=== PATIENT | female | born 1955 | race Caucasian/White ===

== ENCOUNTER 2019-10-11 15:42 | Outpatient (REF) | payer SELFPAY ==
[2019-10-11 16:55] LABS: Chol HDL Ratio 5.76 mg/dL (0.0-4.40); Cholesterol 196 mg/dL (0-200); Glucose 101 mg/dL (65-115); HDL Cholesterol 34 mg/dL (60-100); LDL Cholesterol Calculated 113 mg/dL (50-129); LDL HDL Ratio 3.32 RATIO (0.00-3.22); Triglycerides 243 mg/dL (0-150)
[2019-10-11 18:15] LABS: Estmated Average Glucose 180; Hemoglobin A1C 7.9 % (4.0-6.0)
== END 2019-10-11 15:43 | disposition home or self-care (01) ==
LOC: LAB 15:42
PROVIDERS: Family Provider Nurse Practitioner; PCP Nurse Practitioner; Visit Provider Dermatology
DX: Z13.9 Encounter for screening, unspecified (principal)
CPT/HCPCS: 80061; 82728; 82947; 83036

== ENCOUNTER 2020-07-30 12:50 | Outpatient (CLI) | payer SELFPAY ==
--- NOTE | 2020-08-02 12:47 | ONC FU_ITS ---
Dr. Ravi Patient Follow-Up Note Patient: Lenora Torres Unit #: [id number]: 1955 Dicatated By: Harish Ravi M.D.Date of Visit:Jul 30, 2020 Onc Med Follow-up/Prog Note Chief Complaint: Hereditary hemochromatosis. History of Present Illness: This is a 65 year-old woman with hereditary hemochromatosis. Her HFE gene analysis showed homozygosity for the C282Y mutation. She had presented in September 2012 with elevated serum ferritin at 702 ng/mL. Her transferrin saturation was borderline high at 49.9%. She was first seen here by Dr. Vega on 11/01/2012. Her HFE gene analysis showed homozygous C282Y mutation. She was started on scheduled phlebotomy protocol twice per week. By 01/29/2013 she had 3000 ml of blood drawn, and she achieved a functional iron deficiency with ferritin decreased to 30 ng/mL. She had no further phlebotomies since April 2014. She then continued regular follow-up at [facility]. As of October 2014 her ferritin level had remained low at 32.4 ng/mL. By May 2017 it had increased to 122 ng/mL, and as of 03/19/2019, it had further increased to 158 ng/mL. I had seen her for a follow-up visit on 04/19/2019. Her serum iron studies show transferrin saturation elevated at 52.4% and her ferritin was elevated at 171 ng/mL. With those findings, she restarted phlebotomies every 2 weeks. She did have some delays due to her hemoglobin being borderline low, but she otherwise tolerated it well. As of her follow-up visit on 07/25/2019 her transferrin saturation was normal at 34% and her ferritin was in target range of 49.0 ng/mL, and I did have her stop phlebotomies. Her other medical illnesses include hypertension, dyslipidemia, type II diabetes, and nephrolithiasis. She is known to have nonalcoholic steatohepatitis, and she has a history of colonic polyps. She also has anxiety/depression. In July 2012 she had presented with a large symptomatic right renal pelvic stone, requiring several courses of lithotripsy and ureteral stent placement. Her only other surgery was a hysterectomy/bilateral salpingo-oophorectomy and appendectomy in 1983. Her most recent colonoscopy was in 2015. She is a nonsmoker, and she does not drink alcohol. She is seen now for a follow-up visit. She has been feeling good generally. She has not had any further phlebotomy since her visit last year. Her energy has been good and she has normal activity. ECOG score is 0. Appetite also is good. She has not had fever or night sweats. She does have some hot flashes. She has no shortness of breath, cough, or chest pain. She does have nausea at times and lately she has been having more heartburn. She manages it adequately with Tums. She says her bowels are never normal, but they are okay. She has no complaints. She has some joint pain, mainly in her hands. She has some slight tension headaches. She does report having some numbness in her fingers. She has no other focal neurologic symptoms. Medications: Atenolol 100 mg - Take 1 Tablet Oral daily, B-12 1 Tablet (of 500 mcg) Oral daily, Biotin 1 Tablet (of 500 mcg) Oral daily, Fenofibrate 1 Tablet (of 67 mg) Oral daily, Lantus SoloStar 30 - 35 Units (of 100 Units/mL) Subcutaneous at bedtime, Levemir 35 Units (of 100 Units/mL) Subcutaneous at bedtime, Losartan Potassium 1 Tablet (of 50 mg) Oral daily, MetFORMIN HCl 2 Tablet (of 500 mg) Oral b.i.d., Saw [place] 1 Tablet Oral daily, Venlafaxine HCl 1 (150 mg) Capsule SR 24 HR Oral daily, Victoza 1.8 Units Subcutaneous daily, Vitamin D 1000 Units - Take 1 Tablet Oral daily Allergies: Erythromycin Base, Penicillins, Statins, and Sulfa Drugs. Review of Systems: Constitutional - She has good energy and activity tolerance. Appetite is good and weight is stable. No fever or night sweats. She does have some hot flashes. ECOG score is 0, ENMT - No sinus congestion/drainage. She has had mouth sores. No sore throat or difficulty swallowing, Hematologic/Lymphatic - She does have some bruising, Respiratory - No shortness of breath. No cough. No pleuritic pain or hemoptysis, Cardiovascular - No angina pain. No palpitations, Gastrointestinal - She has nausea at times. She has been having more heartburn. She manages it with Tums. Her bowels are never normal, but they are OK. No blood in the stool or black stools, Genitourinary (F) - No dysuria or hematuria. No urinary frequency. No urgency or incontinence, Musculoskeletal - She has some joint pain in her hands, Integumentary - No skin rash, Neurologic - She has slight headaches. No dizziness. She has numbness in her fngers. No other focal neurologic symptoms, Psychiatric - Her anxiety/depression is adequately managed. No insomnia. Vital Signs: Performed on Jul 30, 2020 13:03 Height - 62.00 in Weight - 163.0 lbs (HIGH) BSA - 1.75 sq.m BMI - 29.81 Temperature - 98.7 F Pulse - 71 /min Respiration - 18 /min BP - 170/74 mm(hg) (HIGH) O2 Sat - 98 % Pain - 0 Physical Examination: Constitutional - She looks good generally, Eyes - Sclerae nonicteric. Conjunctivae clear, ENMT - No lesions noted in the oral cavity, Hematologic/Lymphatic - No cervical, clavicular, or axillary adenopathy, Respiratory - Lungs are clear with good air movement bilaterally, Cardiovascular - Heart rhythm is regular. There is no murmur, gallop, or rub noted, Abdomen - Soft. Liver and spleen are not enlarged. There is no abdominal mass or ascites noted and there is no inguinal adenopathy, Extremities - No edema, Neurologic - No focal neurologic deficits noted. Impression: 1. Patient with hereditary hemochromatosis, homozygous for C282Y mutation. 2. The hemochromatosis was initially diagnosed in 2012 and treated with phlebotomies, stopped as of April 2014 with her ferritin level in iron deficiency range. Her other medical illnesses include: 3. Hypertension. 4. Type II diabetes. 5. Nonalcoholic steatohepatitis. 6. She has a history of nephrolithiasis. 7. History of colonic polyps. 8. Anxiety/depression. In April 2019 she had restarted phlebotomies every 2 weeks after her transferrin saturation and ferritin levels were both found to be elevated. As of her follow-up visit in July 2019 her transferrin saturation was normal and her ferritin level was in target range at 49.0 ng/mL, and I did have her stop phlebotomies. Her clinical status has since then remained stable. Her current laboratory results are pending. Plan: She will restart phlebotomies as indicated based on the transferrin saturation and ferritin level. Her interim laboratory monitoring also will be scheduled as indicated. I will just plan a follow-up visit again in 1 year. Signed By: Harish Ravi M.D. <<Signature on File>>
== END 2020-07-30 12:51 | disposition home or self-care (01) ==
LOC: ONCMED 12:53
PROVIDERS: PCP Nurse Practitioner; Visit Provider Internal Medicine Medical Oncology
DX: E83.110 Hereditary hemochromatosis (principal); I10 Essential (primary) hypertension; E11.9 Type 2 diabetes mellitus without complications; K75.81 Nonalcoholic steatohepatitis (NASH); N20.0 Calculus of kidney; F41.9 Anxiety disorder, unspecified; F32.9 Major depressive disorder, single episode, unspecified; Z86.010 Personal history of colon polyps; Z79.899 Other long term (current) drug therapy
CPT/HCPCS: 99214

== ENCOUNTER 2020-08-05 11:54 | Outpatient (CLI) | payer SELFPAY | END 2020-08-05 11:55 | disposition home or self-care (01) | LOC: ONCMED 11:56 | PROVIDERS: PCP Nurse Practitioner; Visit Provider Internal Medicine Medical Oncology | DX: E83.110 Hereditary hemochromatosis (principal) | CPT/HCPCS: 99195 ==

== ENCOUNTER → 2020-10-08 08:39 | Outpatient (BNVA) | payer SELFPAY | PROVIDERS: PCP Nurse Practitioner; Visit Provider Nurse Practitioner | DX: Z13.6 Encounter for screening for cardiovascular disorders (principal) | CPT/HCPCS: 80061; 82947; 83036 ==

== ENCOUNTER → 2021-02-03 08:41 | Outpatient (BNVA) | payer SELFPAY | PROVIDERS: PCP Nurse Practitioner; Visit Provider Nurse Practitioner | DX: Z01.89 Encounter for other specified special examinations (principal) ==

== ENCOUNTER 2021-02-05 14:19 | Outpatient (CLI) | payer SELFPAY ==
[2021-02-05 16:07] LABS: Ferritin 101 ng/mL (15-150); Iron 110 ug/dL (37-145); Percent Saturation 42.3 % (20-50); Total Iron Binding Capacity 260 mcg/dl; Unsaturated Iron Binding 150 ug/dL (112-347)
== END 2021-02-05 14:20 | disposition home or self-care (01) ==
LOC: ONCMED 14:23
PROVIDERS: PCP Nurse Practitioner; Visit Provider Internal Medicine Medical Oncology
DX: D50.9 Iron deficiency anemia, unspecified (principal); Z79.899 Other long term (current) drug therapy
CPT/HCPCS: 82728; 83540; 83550; 99195

== ENCOUNTER → 2021-05-05 08:20 | Outpatient (BNVA) | payer SELFPAY | PROVIDERS: PCP Nurse Practitioner; Visit Provider Dermatology | DX: Z01.89 Encounter for other specified special examinations (principal) ==

== ENCOUNTER → 2021-07-27 09:06 | Outpatient (BNVA) | payer SELFPAY | PROVIDERS: PCP Nurse Practitioner; Visit Provider Internal Medicine Medical Oncology | DX: E83.110 Hereditary hemochromatosis (principal) | CPT/HCPCS: 82728; 83550 ==

== ENCOUNTER → 2021-07-28 08:45 | Outpatient (BNVA) | payer SELFPAY | PROVIDERS: PCP Nurse Practitioner; Visit Provider Dermatology | DX: Z01.89 Encounter for other specified special examinations (principal) ==

== ENCOUNTER 2021-07-30 12:50 | Outpatient (CLI) | payer SELFPAY ==
--- NOTE | 2021-08-02 13:57 | ONC FU_ITS ---
Dr. Ravi Patient Follow-Up Note Patient: Lenora Torres Unit #: [id number]: 1955 Dicatated By: Harish Ravi M.D.Date of Visit:Jul 30, 2021 Onc Med Follow-up/Prog Note Chief Complaint: Hereditary hemochromatosis. History of Present Illness: This is a 66 year-old woman with hereditary hemochromatosis. Her HFE gene analysis showed homozygosity for the C282Y mutation. She had presented in September 2012 with elevated serum ferritin at 702 ng/mL. Her transferrin saturation was borderline high at 49.9%. She was first seen here by Dr. Vega on 11/01/2012. Her HFE gene analysis showed homozygous C282Y mutation. She was started on scheduled phlebotomy protocol twice per week. By 01/29/2013 she had 3000 ml of blood drawn, and she achieved a functional iron deficiency with ferritin decreased to 30 ng/mL. She had no further phlebotomies since April 2014. She then continued regular follow-up at [facility]. As of October 2014 her ferritin level had remained low at 32.4 ng/mL. By May 2017 it had increased to 122 ng/mL, and as of 03/19/2019, it had further increased to 158 ng/mL. I had seen her for a follow-up visit on 04/19/2019. Her serum iron studies show transferrin saturation elevated at 52.4% and her ferritin was elevated at 171 ng/mL. With those findings, she restarted phlebotomies every 2 weeks. She did have some delays due to her hemoglobin being borderline low, but she otherwise tolerated it well. As of her follow-up visit on 07/25/2019 her transferrin saturation was normal at 34% and her ferritin was in target range of 49.0 ng/mL, and I did have her stop phlebotomies. Her other medical illnesses include hypertension, dyslipidemia, type II diabetes, and nephrolithiasis. She is known to have nonalcoholic steatohepatitis, and she has a history of colonic polyps. She also has anxiety/depression. In July 2012 she had presented with a large symptomatic right renal pelvic stone, requiring several courses of lithotripsy and ureteral stent placement. Her only other surgery was a hysterectomy/bilateral salpingo-oophorectomy and appendectomy in 1983. Her most recent colonoscopy was in 2015. She is a nonsmoker, and she does not drink alcohol. She is seen now for a follow-up visit. She says she is not feeling too bad. She says her blood pressure has been high lately. She does complain that her energy is not very good and that she wants to sleep all the time. She is doing light work. Her ECOG score is 1. She says her appetite takes spells. Her weight is down a couple of pounds. She has not had fever. She sometimes has a lot of sweating at night. Last week she had blisters inside her mouth and she has had sore throat for 2-1/2 weeks. She has had sinus drainage and cough. She has had shortness of breath and a little bit of wheezing. She does not complain of chest pain. She has been having a little nausea and she also has acid reflux. Bowel function has been adequate, though not normal. She has no complaints. She has joint pain, mainly in her hands. Recently she has been having headaches. She does not complain of dizziness, and she has no focal neurologic symptoms. Medications: Atenolol 100 mg - Take 1 Tablet Oral daily, B-12 1 Tablet (of 500 mcg) Oral daily, Biotin 1 Tablet (of 500 mcg) Oral daily, Fenofibrate 1 Tablet (of 67 mg) Oral daily, Lantus SoloStar 30 - 35 Units (of 100 Units/mL) Subcutaneous at bedtime, Levemir 35 Units (of 100 Units/mL) Subcutaneous at bedtime, Losartan Potassium 1 Tablet (of 50 mg) Oral daily, MetFORMIN HCl 2 Tablet (of 500 mg) Oral b.i.d., Saw [place] 1 Tablet Oral daily, Venlafaxine HCl 1 (150 mg) Capsule SR 24 HR Oral daily, Victoza 1.8 Units Subcutaneous daily, Vitamin D 1000 Units - Take 1 Tablet Oral daily Allergies: Erythromycin Base, Penicillins, Statins, and Sulfa Drugs. Vital Signs: Performed on Jul 30, 2021 13:04 Height - 62.00 in Weight - 160.0 lbs (LOW) BSA - 1.74 sq.m BMI - 29.26 Temperature - 97.5 F (LOW) Pulse - 77 /min Respiration - 16 /min BP - 175/82 mm(hg) (HIGH) O2 Sat - 97 % Pain - 0 Fatigue - 6 Physical Examination: Constitutional - She looks good generally, Eyes - Sclerae nonicteric. Conjunctivae clear, ENMT - No lesions noted in the oral cavity, Hematologic/Lymphatic - No cervical, clavicular, or axillary adenopathy, Respiratory - Lungs are clear with good air movement bilaterally, Cardiovascular - Heart rhythm is regular. There is no murmur, gallop, or rub noted, Abdomen - Soft. Liver and spleen are not enlarged. There is no abdominal mass or ascites noted and there is no inguinal adenopathy, Extremities - No edema, Neurologic - No focal neurologic deficits noted. Lab/Imaging: CBC shows hemoglobin 12.8 g, white blood cell count 3900, and platelet count 259,000. Comprehensive metabolic profile shows normal renal function with BUN 20 and creatinine 0.9 mg/dL. The SGOT and SGPT are both mildly elevated, but similar to prior studies. Bilirubin and alkaline phosphatase are normal. The serum iron studies show transferrin saturation 31.3% and the ferritin is stable at 100 ng/mL. Hemoglobin A1c is up slightly at 8%. Problem List: 1. Hereditary hemochromatosis, initially diagnosed in 2012. 2. Hypertension. 3. Type II diabetes. 4. Nonalcoholic steatohepatitis. 5. She has a history of nephrolithiasis. 6. History of colonic polyps. 7. Anxiety/depression. Problems Addressed with this Encounter and Plan: 1. Patient with hereditary hemochromatosis, homozygous for C282Y mutation. The hemochromatosis was initially diagnosed in 2012 and treated with phlebotomies, stopped as of April 2014 with her ferritin level in iron deficiency range. In April 2019 she had restarted phlebotomies every 2 weeks after her transferrin saturation and ferritin levels were both found to be elevated. As of her follow-up visit in July 2019 her transferrin saturation was normal and her ferritin level was in target range at 49.0 ng/mL, and I did have her stop phlebotomies. Her serum iron studies now show transferrin saturation in normal range at 31%. The ferritin level is at the upper end of target range, but stable since January. As such, she will be phlebotomized today and she will be scheduled to return for follow-up in 6 months. 2. She has symptoms of sinusitis and upper respiratory infection. She will be given antibiotic coverage with azithromycin. Signed By: Harish Ravi M.D. <<Signature on File>>
== END 2021-07-30 12:51 | disposition home or self-care (01) ==
LOC: ONCMED 12:53
PROVIDERS: PCP Nurse Practitioner; Visit Provider Internal Medicine Medical Oncology
DX: E83.110 Hereditary hemochromatosis (principal); I10 Essential (primary) hypertension; E11.9 Type 2 diabetes mellitus without complications; E78.5 Hyperlipidemia, unspecified; F41.9 Anxiety disorder, unspecified; F32.A Depression, unspecified; Z79.899 Other long term (current) drug therapy
CPT/HCPCS: 99195; 99214

== ENCOUNTER → 2021-10-27 08:29 | Outpatient (BNVA) | payer SELFPAY | PROVIDERS: PCP Nurse Practitioner; Visit Provider Dermatology | DX: Z01.89 Encounter for other specified special examinations (principal) ==

== ENCOUNTER → 2022-01-26 08:36 | Outpatient (BNVA) | payer SELFPAY | PROVIDERS: PCP Nurse Practitioner; Visit Provider Dermatology | DX: Z01.89 Encounter for other specified special examinations (principal) ==

== ENCOUNTER 2022-02-09 13:49 | Oncology outpatient (recurring) (ONCR) | payer SELFPAY ==
[2022-02-09 14:18] LABS: Basophils % 0.7 %; Eosinophils # 0.2 10^3/uL (0.0-0.8); Eosinophils % 3.7 %; Hematocrit 35.8 % (37.0-47.0); Hemoglobin 12.4 g/dL (11.5-15.3); Lymphocytes # 1.6 10^3/uL (0.8-4.8); Lymphocytes % 37.3 %; Mean Corpuscular HGB Conc 34.6 g/dL (30.0-36.0); Mean Corpuscular Hemoglobin 31.4 pg (28.0-34.0); Mean Corpuscular Volume 90.6 fl (81-99); Mean Platelet Volume 11.6 fL (7.4-10.4); Monocytes # 0.3 10^3/uL (0.2-0.9); Monocytes % 7.6 %; Neutrophils # 2.18 10^3/uL (1.8-7.7); Neutrophils % 50.5 %; Nucleated Red Blood Cells % 0 %; Platelet Count 270 10^3/cmm (130-400); Red Blood Count 3.95 10^6/uL (4.1-5.3); Red Cell Distribution Width 12.2 % (12.1-15.1); White Blood Count 4.3 10^3/uL (4.0-10.0)
[2022-02-09 14:39] LABS: Ferritin 100 ng/mL (15-150); Iron 106 ug/dL (37-145); Percent Saturation 42.9 % (20-50); Total Iron Binding Capacity 247 mcg/dl; Unsaturated Iron Binding 141 ug/dL (112-347)
[2022-02-09] MEDS: sodium chloride 0.9% 500 ML 999 ML IV (16:13)
[2022-02-09 16:33] VITALS: BP 139/67; PULSE 64; RESP 18; TEMP 36.4; O2SAT 98
== END 2022-02-11 23:59 | disposition home or self-care (01) ==
PROVIDERS: PCP Nurse Practitioner; Visit Provider Internal Medicine Medical Oncology
DX: E83.110 Hereditary hemochromatosis (principal)
CPT/HCPCS: 82728; 83540; 83550; 85025; 96360; 99195; 99214; J7040

== ENCOUNTER → 2022-04-27 08:15 | Outpatient (BNVA) | payer SELFPAY | PROVIDERS: PCP Nurse Practitioner; Visit Provider Dermatology | DX: Z01.89 Encounter for other specified special examinations (principal); E11.65 Type 2 diabetes mellitus with hyperglycemia; E78.5 Hyperlipidemia, unspecified; E83.110 Hereditary hemochromatosis; I10 Essential (primary) hypertension; F41.1 Generalized anxiety disorder ==

== ENCOUNTER → 2022-05-04 16:10 | Outpatient (BNVA) | payer MEDICARE, SELFPAY | PROVIDERS: PCP Nurse Practitioner; Visit Provider Nurse Practitioner | DX: I10 Essential (primary) hypertension (principal); E11.65 Type 2 diabetes mellitus with hyperglycemia; Z79.4 Long term (current) use of insulin; E78.2 Mixed hyperlipidemia; F41.1 Generalized anxiety disorder | CPT/HCPCS: 81000 ==

== ENCOUNTER 2022-05-13 14:18 | Oncology outpatient (recurring) (ONCR) | payer MEDICARE, SELFPAY ==
[2022-05-13 14:53] VITALS: BP 133/63; PULSE 68; RESP 16; TEMP 36.3; O2SAT 98
[2022-05-13 14:59] LABS: Basophils % 0.7 %; Eosinophils # 0.2 10^3/uL (0.0-0.8); Eosinophils % 3.3 %; Hematocrit 38.4 % (37.0-47.0); Hemoglobin 12.9 g/dL (11.5-15.3); Lymphocytes # 1.6 10^3/uL (0.8-4.8); Lymphocytes % 35.3 %; Mean Corpuscular HGB Conc 33.6 g/dL (30.0-36.0); Mean Corpuscular Volume 92.3 fl (81-99); Mean Platelet Volume 11.5 fL (7.4-10.4); Monocytes # 0.4 10^3/uL (0.2-0.9); Monocytes % 8.3 %; Neutrophils # 2.34 10^3/uL (1.8-7.7); Neutrophils % 52.2 %; Nucleated Red Blood Cells % 0 %; Platelet Count 259 10^3/cmm (130-400); Red Blood Count 4.16 10^6/uL (4.1-5.3); Red Cell Distribution Width 12.3 % (12.1-15.1); White Blood Count 4.5 10^3/uL (4.0-10.0)
[2022-05-13 15:17] LABS: Ferritin 56 ng/mL (15-150); Iron 92 ug/dL (37-145); Percent Saturation 33.6 % (20-50); Total Iron Binding Capacity 273 mcg/dl; Unsaturated Iron Binding 181 ug/dL (112-347)
[2022-05-13] MEDS: sodium chloride 0.9% 250 ML 500 ML IV (16:05)
== END 2022-05-14 23:59 | disposition home or self-care (01) ==
PROVIDERS: PCP Nurse Practitioner; Visit Provider Internal Medicine Medical Oncology
DX: E83.110 Hereditary hemochromatosis (principal)
CPT/HCPCS: 36415; 82728; 83540; 83550; 85025; 96365; 99195; J7050

== ENCOUNTER → 2022-07-15 10:09 | Outpatient (BNVA) | payer MEDICARE, SELFPAY | PROVIDERS: PCP Nurse Practitioner; Visit Provider Nurse Practitioner Family | DX: R05.9 Cough, unspecified (principal); J06.9 Acute upper respiratory infection, unspecified | CPT/HCPCS: 87400 ==

== ENCOUNTER → 2022-07-27 08:31 | Outpatient (BNVA) | payer SELFPAY | PROVIDERS: PCP Nurse Practitioner; Referring Provider Dermatology; Visit Provider Dermatology | DX: Z01.89 Encounter for other specified special examinations (principal) ==

== ENCOUNTER 2022-08-17 12:56 | Oncology outpatient (recurring) (ONCR) | payer MEDICARE, SELFPAY ==
[2022-08-17 13:54] LABS: Basophils % 0.5 %; Eosinophils # 0.1 10^3/uL (0.0-0.8); Eosinophils % 3.5 %; Hematocrit 36.8 % (37.0-47.0); Hemoglobin 11.8 g/dL (11.5-15.3); Lymphocytes # 1.5 10^3/uL (0.8-4.8); Lymphocytes % 37.2 %; Mean Corpuscular HGB Conc 32.1 g/dL (30.0-36.0); Mean Corpuscular Hemoglobin 29.3 pg (28.0-34.0); Mean Corpuscular Volume 91.3 fl (81-99); Mean Platelet Volume 11.2 fL (7.4-10.4); Monocytes # 0.3 10^3/uL (0.2-0.9); Monocytes % 6.8 %; Neutrophils # 2.04 10^3/uL (1.8-7.7); Neutrophils % 51.7 %; Nucleated Red Blood Cells % 0 %; Platelet Count 276 10^3/cmm (130-400); Red Blood Count 4.03 10^6/uL (4.1-5.3); Red Cell Distribution Width 13.5 % (12.1-15.1)
[2022-08-17 14:19] LABS: Alanine Aminotransferase 33 U/L (0-33); Albumin Level 4.4 g/dL (3.5-5.2); Alkaline Phosphatase 58 U/L (35-105); Anion Gap 14.1 (5-19); Aspartate Amino Transferase 37 U/L (0-32); Blood Urea Nitrogen 22 mg/dL (8-23); Calcium 10.1 mg/dL (8.5-10.5); Carbon Dioxide 26 mmol/L (22-29); Chloride 103 mmol/L (98-107); Ferritin 33 ng/mL (15-150); Globulin 2.9 g/dL (1.3-4.6); Glomerular Filtration Rate 55.6 mL/min (90-130); Glucose 136 mg/dL (65-115); Iron 64 ug/dL (37-145); Osmolality Calculated 293 mOsm/kg (285-295); Percent Saturation 23.1 % (20-50); Potassium 4.1 mmol/L (3.5-5.1); Sodium 139 mmol/L (136-145); Total Bilirubin 0.2 mg/dL (0.15-1.2); Total Iron Binding Capacity 277 mcg/dl; Total Protein 7.3 g/dL (6.6-8.7); Unsaturated Iron Binding 213 ug/dL (112-347)
[2022-08-17 15:22] VITALS: BP 104/74; PULSE 78; RESP 18; TEMP 36.1; O2SAT 98
[2022-08-17 16:10] VITALS: BP 107/68; PULSE 84; RESP 18; TEMP 36.6; O2SAT 97
== END 2022-09-14 23:59 | disposition home or self-care (01) ==
PROVIDERS: PCP Nurse Practitioner; Visit Provider Internal Medicine Medical Oncology
DX: E83.110 Hereditary hemochromatosis (principal); Z79.899 Other long term (current) drug therapy
CPT/HCPCS: 36415; 80053; 82728; 83540; 83550; 85025; 96365; 99195

== ENCOUNTER → 2022-08-18 08:46 | Outpatient (BNVA) | payer MEDICARE, SELFPAY | PROVIDERS: PCP Nurse Practitioner; Visit Provider Nurse Practitioner | DX: I10 Essential (primary) hypertension (principal); E11.65 Type 2 diabetes mellitus with hyperglycemia; Z79.4 Long term (current) use of insulin; Z86.010 Personal history of colon polyps; E78.2 Mixed hyperlipidemia; F41.1 Generalized anxiety disorder; Z12.39 Encounter for other screening for malignant neoplasm of breast | CPT/HCPCS: 81000 ==

== ENCOUNTER 2022-09-02 13:13 | Outpatient (CLI) | payer MEDICARE, SELFPAY ==
--- NOTE | 2022-09-02 13:23 | MM_ITS ---
WS: [id number] BILATERAL 3D TOMOSYNTHESIS DIGITAL SCREENING MAMMOGRAPHY WITH CAD CLINICAL INFORMATION: Z12.39 - Encounter for other screening for malignant neop... HISTORY: Screening mammogram. No current complaints. COMPARISON: 2018 TECHNIQUE: Bilateral CC and MLO views. FINDINGS: Scattered fibroglandular densities bilaterally. No suspicious focal mass, asymmetry, calcifications, or architectural distortion. No evidence of malignancy. Punctate and lucent centered calcifications. Vascular calcification. MM/[place] [id number] IMPRESSION: BI-RADS: 2-Benign FOLLOW UP: 1 Year Follow-up Recommend return to annual screening mammography.
== END 2022-09-02 13:14 | disposition home or self-care (01) ==
LOC: RAD 13:15
PROVIDERS: PCP Nurse Practitioner; Visit Provider Nurse Practitioner
DX: Z12.31 Encounter for screening mammogram for malignant neoplasm of breast (principal)
CPT/HCPCS: 77063; 77067

== ENCOUNTER 2022-10-21 05:54 | Day surgery (SDC) | payer MEDICARE, SELFPAY ==
[2022-10-19 09:39] VITALS: BMI 26.9
[2022-10-21 06:16] VITALS: BP 129/72; PULSE 67; RESP 18; TEMP 36.2; O2SAT 99
[2022-10-21] MEDS: sodium chloride 0.9% 1,000 ML 30 ML IV (06:22)
[2022-10-21 06:31] LABS: Glucose Point of Care 125 mg/dL (70-110)
--- NOTE | 2022-10-21 06:48 | P.ANESASSM_ITS ---
Pre-Anesthetic Assessment Height/Weight: Height 1.57 m Weight 66.678 kg Temp Pulse Resp BP Pulse Ox 97.1 F L 67 18 129/72 99 10/21/22 06:16 10/21/22 06:16 10/21/22 06:16 10/21/22 06:16 10/21/22 06:16 Preop Diagnosis: history of colon polyps Operation Date: 10/21/22 07:30 Proposed Procedures p 08128 Colonoscopy z86.010(Not Applicable) - Jericho Hammond DO Familial anesthetic complications: none Was Beta Cheryl taken within 24 hours: Yes Was Clonidine taken within 24 hours: N/A Last intake: Intake Last Liquid Date 10/20/22 Last Solid Date 10/19/22 Social No alcohol and No tobacco Exam alert, oriented x 3, clear to auscultation bilaterally and regular rate & rhythm Airway Submandibular: within normal limits Cervical ROM: within normal limits Mallampati: Class I Dentition: full Pulmonary None reported CV/HEM Hypertension None reported Hepatic None reported GI Gastroesophageal Reflux Disease (controlled) Metabolic Diabetes Mellitus and Hyperlipidemia [facility] None reported Neuropsych Anxiety and Depression Anesthetic Plan ASA status: 3 Anesthesia: MAC Risk of > 500 ml blood loss (7ml/kg in children): No Medications/Allergies Home Medications Medication Instructions Recorded Confirmed Last Taken Type cholecalciferol (vitamin D3) 250 10,000 unit PO DAILY 09/18/19 10/19/22 10/20/22 History mcg (10,000 unit) capsule vitamin B complex (B 1 tab PO DAILY 09/18/19 10/19/22 10/20/22 History Complex-Vitamin B12 tablet) pen needle, diabetic 33 gauge x #100 ea 11/03/21 10/05/22 10/20/22 Rx 5/32 biotin 2,500 mcg tablet and 1 ea PO DAILY 08/17/22 10/19/22 10/20/22 History xfmpnjnt-[id number]-[id number] topical lacquer kit atenolol 100 mg tablet 100 mg PO DAILY #90 tabs 08/18/22 10/19/22 10/21/22 Rx dapagliflozin 5 mg tablet (Farxiga) 5 mg PO QAM #30 tabs 08/18/22 10/19/22 10/20/22 Rx fenofibrate micronized 67 mg 67 mg PO .2 times day #180 caps 08/18/22 10/19/22 10/20/22 Rx capsule liraglutide 0.6 mg/0.1 mL (18 mg/3 1.8 mg (0.3 mL) SUBCUT Q24H #9 mL 08/18/22 10/19/22 10/20/22 Rx mL) subcutaneous pen injector (Victoza 3-Checo) metformin 500 mg tablet 1,000 mg PO BID #360 tabs 08/18/22 10/19/22 10/20/22 Rx valsartan 320 mg tablet (Diovan) 320 mg PO DAILY #90 tabs 08/18/22 10/19/22 10/20/22 Rx venlafaxine 150 mg 150 mg PO QAM #180 caps 08/18/22 10/19/22 10/20/22 Rx capsule,extended release 24 hr aspirin 81 mg tablet,delayed 81 mg PO DAILY 10/05/22 10/19/22 10/11/22 History release loratadine 10 mg tablet 10 mg PO DAILY 10/05/22 10/19/22 10/20/22 History insulin detemir U-100 100 unit/mL 35 unit SUBCUT DAILY 10/19/22 10/19/22 10/20/22 History (3 mL) subcutaneous pen (Levemir FlexTouch U-100 Insulin) Allergies Allergy/AdvReac Type Severity Reaction Status Date / Time erythromycin base Allergy Unknown Verified 10/21/22 06:15 Penicillins Allergy Unknown Verified 10/21/22 06:15 Sulfa (Sulfonamide Allergy Unknown Verified 10/21/22 06:15 Antibiotics) Current Medications Generic Name Dose Route Start Last Admin Trade Name Freq PRN Reason Stop Dose Admin Sodium Chloride 1,000 mls @ 30 mls/hr 10/21/22 06:15 10/21/22 06:22 Sodium Chloride 0.9% IV 10/22/22 06:14 30 mls/hr .Q24H WILTON Administration PFSH Anesthesia Medical History Depression Diabetes mellitus with hyperglycemia, with long-term current use of insulin Generalized anxiety disorder GERD (gastroesophageal reflux disease) Hereditary hemochromatosis History of colonic polyps Hypertension, benign Mixed hyperlipidemia Nephrolithiasis Nonalcoholic steatohepatitis Surgical History History of colonoscopy (2015) History of hysterectomy with bilateral oophorectomy (1983) and with appendectomy History of lithotripsy (2011) with ureteral stent placement Family History Sister Cancer Breast Mother Dementia Other Diabetes Hyperlipidemia Hypertension Denies family history of CAD (coronary artery disease) Clotting disorder Psychiatric illness Chronic kidney disease (CKD) Suicide Anesthesia complication Bleeding disorder Lung disease Stroke Social History Smoking and tobacco status: never smoked Second hand smoke exposure: No Smoking risk assessment/counseling performed?: No Alcohol intake: never Desire information about alcohol rehabilitation?: No Counseling given: No Desire information about substance/drug rehabilitation?: No Counseling given: No Adopted: No Caregiver/support person: No Lives independently: Yes Household members: spouse Housing: House Marital status: service: No Current gender identity: Female Data Anesthesia Cardiac Studies: No Data to Display
--- NOTE | 2022-10-21 06:54 | W.PM.OPSUD ---
Surgery/Procedure H&P Update DATE OF PROCEDURE: October 21, 2022 DATE H&P PERFORMED: 10/05/22 H&P UPDATE INFORMATION: I have reviewed H&P completed within last 30 days, I have examined patient prior to procedure and No changes to prior documentation PREOP DIAGNOSIS: history of colon polyps PLANNED PROCEDURE: Operation Date: 10/21/22 07:30 Proposed Procedures p [id number] Colonoscopy z86.010(Not Applicable) - Jericho Hammond DO
[2022-10-21 08:26] VITALS: BP 88/60; PULSE 59; RESP 16; TEMP 36.2; O2SAT 100
[2022-10-21 08:36] VITALS: BP 90/53; PULSE 68; RESP 16; O2SAT 97
--- NOTE | 2022-10-21 14:05 | ANE.PACU2 ---
Inpatient post-anesthesia follow up: Airway intact: Yes Vital signs: Temperature 97.2 F Pulse Rate 68 Respiratory Rate 16 Blood Pressure 90/53 Pulse Oximetry 97 Oxygen Delivery Me thod Room Air Oxygen Flow Rate Fraction of Inspir ed Oxygen Hydration adequate: Yes Nausea and vomiting: No Pain level: 1 Mental status: Baseline
== END 2022-10-21 08:59 | disposition home or self-care (01) ==
PROVIDERS: PCP Nurse Practitioner; Visit Provider Surgery
PROC: 0DJD8ZZ Inspection of Lower Intestinal Tract, Via Natural or Artificial Opening Endoscopic (ICD-10-PCS; CPT 45378; principal; 2022-10-21 07:30)
DX: Z12.11 Encounter for screening for malignant neoplasm of colon (principal); E11.9 Type 2 diabetes mellitus without complications; I10 Essential (primary) hypertension; E78.2 Mixed hyperlipidemia; K21.9 Gastro-esophageal reflux disease without esophagitis; Z79.82 Long term (current) use of aspirin; Z79.4 Long term (current) use of insulin; Z79.84 Long term (current) use of oral hypoglycemic drugs; Z86.010 Personal history of colon polyps; Z88.0 Allergy status to penicillin; Z88.2 Allergy status to sulfonamides
CPT/HCPCS: 36416; 82962; G0121; J2704; J7030

== ENCOUNTER → 2022-10-26 08:26 | Outpatient (BNVA) | payer MEDICARE, SELFPAY | PROVIDERS: PCP Nurse Practitioner; Visit Provider Dermatology | DX: Z01.89 Encounter for other specified special examinations (principal) ==

== ENCOUNTER → 2022-11-05 09:57 | Outpatient (BNVA) | payer MEDICARE, SELFPAY | PROVIDERS: PCP Nurse Practitioner; Visit Provider Nurse Practitioner | DX: I10 Essential (primary) hypertension (principal); E11.65 Type 2 diabetes mellitus with hyperglycemia; Z79.4 Long term (current) use of insulin; E78.2 Mixed hyperlipidemia; F41.1 Generalized anxiety disorder | CPT/HCPCS: 81000 ==

== ENCOUNTER → 2022-11-15 16:00 | Outpatient (BNVA) | payer MEDICARE, SELFPAY | PROVIDERS: PCP Nurse Practitioner; Visit Provider Nurse Practitioner Family | DX: R30.0 Dysuria (principal); Z87.442 Personal history of urinary calculi | CPT/HCPCS: 74018; 80053; 81000; 85025 ==

== ENCOUNTER → 2023-01-25 08:27 | Outpatient (BNVA) | payer SELFPAY | PROVIDERS: PCP Nurse Practitioner; Visit Provider Dermatology | DX: Z01.89 Encounter for other specified special examinations (principal) ==

== ENCOUNTER 2023-02-21 13:01 | Oncology outpatient (recurring) (ONCR) | payer MEDICARE, SELFPAY ==
[2023-02-21 13:12] VITALS: BP 140/70; PULSE 78; RESP 18; TEMP 36.9; O2SAT 96
[2023-02-21 13:27] LABS: Basophils % 0.8 %; Eosinophils # 0.1 10^3/uL (0.0-0.8); Eosinophils % 2.9 %; Hematocrit 37.4 % (37.0-47.0); Hemoglobin 12.2 g/dL (11.5-15.3); Lymphocytes # 1.5 10^3/uL (0.8-4.8); Lymphocytes % 39.2 %; Mean Corpuscular HGB Conc 32.6 g/dL (30.0-36.0); Mean Corpuscular Hemoglobin 29.4 pg (28.0-34.0); Mean Corpuscular Volume 90.1 fl (81-99); Mean Platelet Volume 11.2 fL (7.4-10.4); Monocytes # 0.3 10^3/uL (0.2-0.9); Neutrophils # 1.81 10^3/uL (1.8-7.7); Neutrophils % 47.8 %; Nucleated Red Blood Cells % 0 %; Platelet Count 271 10^3/cmm (130-400); Red Blood Count 4.15 10^6/uL (4.1-5.3); Red Cell Distribution Width 14.1 % (12.1-15.1); White Blood Count 3.8 10^3/uL (4.0-10.0)
[2023-02-21 13:48] LABS: Alanine Aminotransferase 24 U/L (0-33); Albumin Level 4.3 g/dL (3.5-5.2); Alkaline Phosphatase 62 U/L (35-105); Anion Gap 12.9 (5-19); Aspartate Amino Transferase 26 U/L (0-32); Blood Urea Nitrogen 18 mg/dL (8-23); Calcium 9.3 mg/dL (8.5-10.5); Carbon Dioxide 26 mmol/L (22-29); Chloride 97 mmol/L (98-107); Ferritin 28 ng/mL (15-150); Globulin 2.6 g/dL (1.3-4.6); Glucose 135 mg/dL (65-115); Iron 88 ug/dL (37-145); Osmolality Calculated 278 mOsm/kg (285-295); Percent Saturation 35.9 % (20-50); Potassium 3.9 mmol/L (3.5-5.1); Sodium 132 mmol/L (136-145); Total Bilirubin 0.2 mg/dL (0.15-1.2); Total Iron Binding Capacity 245 mcg/dl; Total Protein 6.9 g/dL (6.6-8.7); Unsaturated Iron Binding 157 ug/dL (112-347)
== END 2023-03-14 23:59 | disposition home or self-care (01) ==
PROVIDERS: PCP Nurse Practitioner; Visit Provider Internal Medicine Medical Oncology
DX: E83.110 Hereditary hemochromatosis (principal)
CPT/HCPCS: 80053; 82728; 83540; 83550; 85025; 99213

== ENCOUNTER 2023-03-01 13:16 | Outpatient (CLI) | payer MEDICARE, SELFPAY ==
--- NOTE | 2023-03-01 13:30 | XR_ITS ---
WS: [id number] SCREENING DEXA SCAN [employer] CLINICAL INFORMATION: Z78.0 - Asymptomatic menopausal state COMPARISON: None. FINDINGS: The L1-L4 bone mineral density measures 1.732 g/cm2. This corresponds to a T score score of 4.6 and Z score of 6.2. Left femoral neck bone mineral density measures 1.507 g/cm2. This corresponds to a T score of 4.0 and Z score of 5.2. Right femoral neck bone mineral density measures 1.491 g/cm2. This corresponds to a T score 3.8of and Z score of 5.0. Mean femoral neck bone mineral density measures 1.499 g/cm2. This corresponds to a T score of 3.9 and Z score of 5.1. XR/XR DEXA axial skeleton* [id number] IMPRESSION: Normal bone mineralization. Patient's FRAX calculated 10 year probability for major osteoporotic fracture i s 4.8 % and osteoporotic hip fracture is 0.0%.
== END 2023-03-01 13:17 | disposition home or self-care (01) ==
LOC: RAD 13:17
PROVIDERS: PCP Nurse Practitioner; Visit Provider Nurse Practitioner
DX: Z13.820 Encounter for screening for osteoporosis (principal); Z78.0 Asymptomatic menopausal state
CPT/HCPCS: 77080

== ENCOUNTER → 2023-03-03 12:57 | Outpatient (BNVA) | payer MEDICARE, SELFPAY | PROVIDERS: PCP Nurse Practitioner; Visit Provider Internal Medicine | DX: Z13.6 Encounter for screening for cardiovascular disorders (principal); Z78.0 Asymptomatic menopausal state | CPT/HCPCS: 93005 ==

== ENCOUNTER → 2023-04-26 08:25 | Outpatient (BNVA) | payer MEDICARE, SELFPAY | PROVIDERS: PCP Nurse Practitioner; Visit Provider Dermatology | DX: Z01.89 Encounter for other specified special examinations (principal) ==

== ENCOUNTER 2023-05-23 10:56 | Oncology outpatient (recurring) (ONCR) | payer MEDICARE, SELFPAY ==
[2023-05-23 11:03] VITALS: BP 154/75; PULSE 64; RESP 16; TEMP 36.5; O2SAT 96
[2023-05-23 11:16] LABS: Basophils % 0.9 %; Eosinophils # 0.1 10^3/uL (0.0-0.8); Eosinophils % 2.3 %; Hematocrit 39.1 % (36-47); Lymphocytes # 1.6 10^3/uL (0.8-4.8); Lymphocytes % 36.9 %; Mean Corpuscular HGB Conc 33.5 g/dL (30-55); Mean Corpuscular Hemoglobin 30.8 pg (27-33); Mean Platelet Volume 11.2 fL (7.4-10.4); Monocytes # 0.4 10^3/uL (0.2-0.9); Monocytes % 9.2 %; Neutrophils # 2.15 10^3/uL (1.8-7.7); Neutrophils % 50.5 %; Nucleated Red Blood Cells % 0 %; Platelet Count 272 10^3/cmm (157-399); Red Blood Count 4.25 10^6/uL (3.85-5.65); Red Cell Distribution Width 12.7 % (12.1-15.1); White Blood Count 4.26 10^3/uL (3.29-11.43)
[2023-05-23 11:39] LABS: Alanine Aminotransferase 35 U/L (0-33); Albumin Level 4.4 g/dL (3.5-5.2); Alkaline Phosphatase 74 U/L (35-105); Anion Gap 11.1 (5-19); Aspartate Amino Transferase 31 U/L (0-32); Blood Urea Nitrogen 22 mg/dL (8-23); Calcium 9.4 mg/dL (8.5-10.5); Carbon Dioxide 27 mmol/L (22-29); Chloride 99 mmol/L (98-107); Ferritin 47 ng/mL (15-150); Globulin 2.7 g/dL (1.3-4.6); Glomerular Filtration Rate 55.5 mL/min (90-130); Glucose 145 mg/dL (65-115); Iron 92 ug/dL (37-145); Osmolality Calculated 282 mOsm/kg (285-295); Percent Saturation 35.6 % (20-50); Potassium 4.1 mmol/L (3.5-5.1); Sodium 133 mmol/L (136-145); Total Bilirubin 0.2 mg/dL (0.15-1.2); Total Iron Binding Capacity 258 mcg/dl; Total Protein 7.1 g/dL (6.6-8.7); Unsaturated Iron Binding 166 ug/dL (112-347)
== END 2023-06-14 23:59 | disposition home or self-care (01) ==
PROVIDERS: Nurse Practitioner Family; PCP Nurse Practitioner; Visit Provider Internal Medicine Medical Oncology
DX: E83.110 Hereditary hemochromatosis (principal); E11.65 Type 2 diabetes mellitus with hyperglycemia; Z79.4 Long term (current) use of insulin
CPT/HCPCS: 36415; 80053; 82728; 83540; 83550; 85025; 99214

== ENCOUNTER 2023-07-26 09:09 | Outpatient (CLI) | payer SELFPAY ==
[2023-07-26 10:03] LABS: HF Add Manual Diff No
[2023-07-26 10:09] LABS: Basophils % 0.7 %; Eosinophils # 0.1 10^3/uL (0.0-0.8); Eosinophils % 2.7 %; Hematocrit 39.5 % (36-47); Lymphocytes # 1.5 10^3/uL (0.8-4.8); Lymphocytes % 36.9 %; Mean Corpuscular HGB Conc 33.9 g/dL (30-55); Mean Corpuscular Hemoglobin 31.8 pg (27-33); Mean Corpuscular Volume 93.8 fl (85-98); Mean Platelet Volume 11.3 fL (7.4-10.4); Monocytes # 0.4 10^3/uL (0.2-0.9); Monocytes % 9.2 %; Neutrophils % 50.5 %; Nucleated Red Blood Cells % 0 %; Platelet Count 258 10^3/cmm (157-399); Red Blood Count 4.21 10^6/uL (3.85-5.65); Red Cell Distribution Width 12.6 % (12.1-15.1); White Blood Count 4.15 10^3/uL (3.29-11.43)
[2023-07-26 10:26] LABS: Estmated Average Glucose 143; Hemoglobin A1C 6.6 % (4.0-6.0)
[2023-07-26 10:37] LABS: Alanine Aminotransferase 22 U/L (0-33); Albumin Level 4.4 g/dL (3.5-5.2); Alkaline Phosphatase 63 U/L (35-105); Anion Gap 16.9 (5-19); Aspartate Amino Transferase 28 U/L (0-32); Blood Urea Nitrogen 26 mg/dL (8-23); Calcium 9.7 mg/dL (8.5-10.5); Carbon Dioxide 25 mmol/L (22-29); Chloride 100 mmol/L (98-107); Chol HDL Ratio 6.17 mg/dL (0.0-4.40); Cholesterol 216 mg/dL (0-200); Globulin 2.7 g/dL (1.3-4.6); Glomerular Filtration Rate 83.7 mL/min (90-130); Glucose 110 mg/dL (65-115); HDL Cholesterol 35 mg/dL (60-100); LDL Cholesterol Calculated 113 mg/dL (50-129); LDL HDL Ratio 3.23 RATIO (0.00-3.22); Osmolality Calculated 291 mOsm/kg (285-295); Potassium 3.9 mmol/L (3.5-5.1); Sodium 138 mmol/L (136-145); Total Bilirubin 0.2 mg/dL (0.15-1.2); Total Protein 7.1 g/dL (6.6-8.7); Triglycerides 341 mg/dL (0-150)
== END 2023-07-26 09:10 | disposition home or self-care (01) ==
LOC: LAB 09:11
PROVIDERS: PCP Nurse Practitioner; Visit Provider Dermatology
DX: Z01.89 Encounter for other specified special examinations (principal)
CPT/HCPCS: 36415

== ENCOUNTER → 2023-08-16 16:00 | Outpatient (BNVA) | payer SELFPAY | PROVIDERS: PCP Nurse Practitioner; Visit Provider Nurse Practitioner | DX: E11.65 Type 2 diabetes mellitus with hyperglycemia (principal); Z79.4 Long term (current) use of insulin | CPT/HCPCS: 81000 ==

== ENCOUNTER 2023-08-25 12:54 | Oncology outpatient (recurring) (ONCR) | payer MEDICARE, SELFPAY ==
[2023-08-25 13:25] VITALS: BP 145/60; PULSE 72; RESP 16; TEMP 36.9; O2SAT 96
[2023-08-25 13:30] LABS: Basophils % 0.9 %; Eosinophils # 0.1 10^3/uL (0.0-0.8); Eosinophils % 1.7 %; Hematocrit 36.7 % (36-47); Lymphocytes # 1.3 10^3/uL (0.8-4.8); Lymphocytes % 36.1 %; Mean Corpuscular HGB Conc 33.5 g/dL (30-55); Mean Corpuscular Hemoglobin 31.1 pg (27-33); Mean Corpuscular Volume 92.7 fl (85-98); Monocytes # 0.3 10^3/uL (0.2-0.9); Monocytes % 8.8 %; Neutrophils # 1.85 10^3/uL (1.8-7.7); Neutrophils % 52.5 %; Nucleated Red Blood Cells % 0 %; Platelet Count 263 10^3/cmm (157-399); Red Blood Count 3.96 10^6/uL (3.85-5.65); Red Cell Distribution Width 12.4 % (12.1-15.1); White Blood Count 3.52 10^3/uL (3.29-11.43)
[2023-08-25 13:47] LABS: Alanine Aminotransferase 32 U/L (0-33); Albumin Level 4.2 g/dL (3.5-5.2); Alkaline Phosphatase 52 U/L (35-105); Anion Gap 15.2 (5-19); Aspartate Amino Transferase 35 U/L (0-32); Blood Urea Nitrogen 18 mg/dL (8-23); Calcium 9.6 mg/dL (8.5-10.5); Carbon Dioxide 26 mmol/L (22-29); Chloride 101 mmol/L (98-107); Ferritin 56 ng/mL (15-150); Globulin 2.8 g/dL (1.3-4.6); Glomerular Filtration Rate 71.8 mL/min (90-130); Glucose 144 mg/dL (65-115); Iron 79 ug/dL (37-145); Osmolality Calculated 290 mOsm/kg (285-295); Potassium 4.2 mmol/L (3.5-5.1); Sodium 138 mmol/L (136-145); Total Bilirubin 0.2 mg/dL (0.15-1.2); Total Iron Binding Capacity 232 mcg/dl; Unsaturated Iron Binding 153 ug/dL (112-347)
== END 2023-09-14 23:59 | disposition home or self-care (01) ==
LOC: ONCMED 12:54
PROVIDERS: Nurse Practitioner Family; PCP Nurse Practitioner; Visit Provider Internal Medicine Medical Oncology
DX: E83.110 Hereditary hemochromatosis (principal)
CPT/HCPCS: 36415; 80053; 82728; 83540; 83550; 85025

== ENCOUNTER 2023-09-27 15:21 | Outpatient (CLI) | payer MEDICARE, SELFPAY ==
--- NOTE | 2023-09-27 15:30 | MM_ITS ---
WS: [id number] Bilateral screening 3D tomosynthesis digital mammogram, 09/27/2023 Clinical Data: Z12.31 - Encounter for screening mammogram for malignant ... Comparison: 09/02/2022, 08/11/2018, 08/04/2016, 03/07/2015, 10/03/2013, 02/08/2012, 10/01/2010, 06/16/2009, 06/03/2008, 07/24/2007. Findings: The breast parenchymal pattern shows fibroglandular tissue. There are scattered benign calcifications throughout both breasts. No spiculated masses or clustered calcifications are seen. There are no sec ondary signs of carcinoma. Impression: 1. Negative bilateral mammogram unchanged. 2. Recommend annual screening mammograms. MM/[place] [id number] BIRADS: 1-Negative FOLLOW UP: 1 Year Follow-up The CAD radio program checker was used.
== END 2023-09-27 15:22 | disposition home or self-care (01) ==
LOC: MOBLMAM 15:28
PROVIDERS: PCP Nurse Practitioner; Visit Provider Nurse Practitioner
DX: Z12.31 Encounter for screening mammogram for malignant neoplasm of breast (principal); R92.1 Mammographic calcification found on diagnostic imaging of breast
CPT/HCPCS: 77063; 77067

== ENCOUNTER → 2023-10-20 15:49 | Outpatient (BNVA) | payer MEDICARE, SELFPAY | PROVIDERS: PCP Nurse Practitioner; Visit Provider Nurse Practitioner Family | DX: R50.9 Fever, unspecified (principal) | CPT/HCPCS: 87400; 87426 ==

== ENCOUNTER → 2023-10-31 08:22 | Outpatient (BNVA) | payer MEDICARE, SELFPAY | PROVIDERS: PCP Nurse Practitioner; Visit Provider Nurse Practitioner | DX: E11.9 Type 2 diabetes mellitus without complications (principal) | CPT/HCPCS: 80053; 80061; 82607; 83036; 84443; 85025 ==

== ENCOUNTER → 2023-11-01 10:06 | Outpatient (BNVA) | payer MEDICARE, SELFPAY | PROVIDERS: PCP Nurse Practitioner; Visit Provider Nurse Practitioner | DX: E11.9 Type 2 diabetes mellitus without complications (principal) | CPT/HCPCS: 81000 ==

== ENCOUNTER 2023-11-24 12:56 | Oncology outpatient (recurring) (ONCR) | payer MEDICARE, SELFPAY ==
[2023-11-24 13:31] LABS: Basophils % 0.9 %; Eosinophils # 0.1 10^3/uL (0.0-0.8); Eosinophils % 2.1 %; Hematocrit 38.3 % (36-47); Lymphocytes # 1.2 10^3/uL (0.8-4.8); Lymphocytes % 35.9 %; Mean Corpuscular HGB Conc 33.2 g/dL (30-55); Mean Corpuscular Hemoglobin 31.8 pg (27-33); Mean Platelet Volume 10.9 fL (7.4-10.4); Monocytes # 0.4 10^3/uL (0.2-0.9); Monocytes % 10.3 %; Neutrophils # 1.72 10^3/uL (1.8-7.7); Neutrophils % 50.5 %; Nucleated Red Blood Cells % 0 %; Platelet Count 291 10^3/cmm (157-399); Red Blood Count 3.99 10^6/uL (3.85-5.65)
[2023-11-24 15:34] LABS: Ferritin 78 ng/mL (15-150); Iron 82 ug/dL (37-145); Percent Saturation 35.3 % (20-50); Total Iron Binding Capacity 232 mcg/dl; Unsaturated Iron Binding 150 ug/dL (112-347)
== END 2023-12-13 23:59 | disposition home or self-care (01) ==
PROVIDERS: Nurse Practitioner Family; PCP Nurse Practitioner; Visit Provider Internal Medicine Medical Oncology
DX: E83.110 Hereditary hemochromatosis (principal); Z79.899 Other long term (current) drug therapy
CPT/HCPCS: 36415; 82728; 83540; 83550; 85025; 99214

== ENCOUNTER → 2024-01-26 15:33 | Outpatient (BNVA) | payer MEDICARE, SELFPAY | PROVIDERS: PCP Nurse Practitioner; Visit Provider Nurse Practitioner | DX: E11.65 Type 2 diabetes mellitus with hyperglycemia (principal); Z79.4 Long term (current) use of insulin | CPT/HCPCS: 81000; 82043 ==

== ENCOUNTER 2024-03-01 12:46 | Oncology outpatient (recurring) (ONCR) | payer MEDICARE, SELFPAY ==
[2024-03-01 13:05] VITALS: BP 170/77; PULSE 67; RESP 16; O2SAT 95
[2024-03-01 13:32] LABS: Basophils % 0.7 %; Eosinophils # 0.1 10^3/uL (0.0-0.8); Eosinophils % 2.5 %; Hematocrit 38.9 % (36-47); Lymphocytes # 1.4 10^3/uL (0.8-4.8); Lymphocytes % 33.9 %; Mean Corpuscular HGB Conc 34.2 g/dL (30-55); Mean Corpuscular Hemoglobin 32.2 pg (27-33); Mean Corpuscular Volume 94.2 fl (85-98); Mean Platelet Volume 11.1 fL (7.4-10.4); Monocytes # 0.4 10^3/uL (0.2-0.9); Monocytes % 9.6 %; Neutrophils # 2.17 10^3/uL (1.8-7.7); Neutrophils % 53.3 %; Nucleated Red Blood Cells % 0 %; Platelet Count 243 10^3/cmm (157-399); Red Blood Count 4.13 10^6/uL (3.85-5.65); Red Cell Distribution Width 12.7 % (12.1-15.1); White Blood Count 4.07 10^3/uL (3.29-11.43)
[2024-03-01 13:47] LABS: Ferritin 63 ng/mL (15-150); Iron 157 ug/dL (37-145); Percent Saturation 63.8 % (20-50); Total Iron Binding Capacity 246 mcg/dl; Unsaturated Iron Binding 89 ug/dL (112-347)
== END 2024-03-14 23:59 | disposition home or self-care (01) ==
LOC: ONCMED 12:47
PROVIDERS: Nurse Practitioner Family; PCP Nurse Practitioner; Visit Provider Internal Medicine Medical Oncology
DX: Z79.899 Other long term (current) drug therapy (principal); E83.110 Hereditary hemochromatosis
CPT/HCPCS: 36415; 82728; 83540; 83550; 85025

== ENCOUNTER → 2024-04-30 15:37 | Outpatient (BNVA) | payer MEDICARE, SELFPAY | PROVIDERS: PCP Nurse Practitioner; Visit Provider Nurse Practitioner | DX: E11.65 Type 2 diabetes mellitus with hyperglycemia (principal) | CPT/HCPCS: 81000 ==

== ENCOUNTER 2024-05-31 12:56 | Oncology outpatient (recurring) (ONCR) | payer MEDICARE, SELFPAY ==
[2024-05-31 13:13] LABS: Basophils % 0.8 %; Eosinophils # 0.1 10^3/uL (0.0-0.8); Eosinophils % 2.5 %; Hematocrit 38.9 % (36-47); Lymphocytes # 1.2 10^3/uL (0.8-4.8); Lymphocytes % 32.7 %; Mean Corpuscular HGB Conc 33.9 g/dL (30-55); Mean Corpuscular Hemoglobin 31.7 pg (27-33); Mean Corpuscular Volume 93.3 fl (85-98); Mean Platelet Volume 11.2 fL (7.4-10.4); Monocytes # 0.3 10^3/uL (0.2-0.9); Neutrophils # 2.01 10^3/uL (1.8-7.7); Neutrophils % 54.7 %; Nucleated Red Blood Cells % 0 %; Platelet Count 232 10^3/cmm (157-399); Red Blood Count 4.17 10^6/uL (3.85-5.65); Red Cell Distribution Width 12.1 % (12.1-15.1); White Blood Count 3.67 10^3/uL (3.29-11.43)
[2024-05-31 13:31] LABS: Alanine Aminotransferase 38 U/L (0-33); Albumin Level 4.6 g/dL (3.5-5.2); Alkaline Phosphatase 58 U/L (35-105); Anion Gap 13.4 (5-19); Aspartate Amino Transferase 37 U/L (0-32); Blood Urea Nitrogen 19 mg/dL (8-23); Calcium 9.6 mg/dL (8.5-10.5); Carbon Dioxide 28 mmol/L (22-29); Chloride 104 mmol/L (98-107); Creatinine Clr Calc Pharmacy 61.3097; Ferritin 73 ng/mL (15-150); Globulin 2.6 g/dL (1.3-4.6); Glomerular Filtration Rate 71.5 mL/min (90-130); Glucose 87 mg/dL (65-115); Iron 139 ug/dL (37-145); Osmolality Calculated 294 mOsm/kg (285-295); Percent Saturation 54.9 % (20-50); Potassium 4.4 mmol/L (3.5-5.1); Sodium 141 mmol/L (136-145); Total Bilirubin 0.4 mg/dL (0.15-1.2); Total Iron Binding Capacity 253 mcg/dl; Total Protein 7.2 g/dL (6.6-8.7); Unsaturated Iron Binding 114 ug/dL (112-347)
== END 2024-06-14 23:59 | disposition home or self-care (01) ==
PROVIDERS: Nurse Practitioner Family; PCP Nurse Practitioner; Visit Provider Internal Medicine Medical Oncology
DX: E83.110 Hereditary hemochromatosis (principal); Z79.899 Other long term (current) drug therapy
CPT/HCPCS: 36415; 80053; 82728; 83540; 83550; 85025; 99214

== ENCOUNTER → 2024-07-26 14:30 | Outpatient (BNVA) | payer MEDICARE, SELFPAY | PROVIDERS: PCP Nurse Practitioner; Visit Provider Nurse Practitioner | DX: E11.65 Type 2 diabetes mellitus with hyperglycemia (principal); Z79.4 Long term (current) use of insulin | CPT/HCPCS: 81000 ==

== ENCOUNTER 2024-08-30 14:06 | Oncology outpatient (recurring) (ONCR) | payer MEDICARE, SELFPAY ==
[2024-08-30 14:32] LABS: Basophils % 0.6 %; Eosinophils # 0.1 10^3/uL (0.0-0.8); Eosinophils % 1.7 %; Hematocrit 38.6 % (36-47); Lymphocytes # 1.2 10^3/uL (0.8-4.8); Lymphocytes % 33.3 %; Mean Corpuscular HGB Conc 33.9 g/dL (30-55); Mean Corpuscular Hemoglobin 32.3 pg (27-33); Mean Corpuscular Volume 95.1 fl (85-98); Mean Platelet Volume 10.8 fL (7.4-10.4); Monocytes # 0.3 10^3/uL (0.2-0.9); Monocytes % 9.6 %; Neutrophils # 1.94 10^3/uL (1.8-7.7); Neutrophils % 54.8 %; Nucleated Red Blood Cells % 0 %; Platelet Count 245 10^3/cmm (157-399); Red Blood Count 4.06 10^6/uL (3.85-5.65); Red Cell Distribution Width 12.3 % (12.1-15.1); White Blood Count 3.54 10^3/uL (3.29-11.43)
[2024-08-30 14:54] LABS: Alanine Aminotransferase 36 U/L (0-33); Albumin Level 4.4 g/dL (3.5-5.2); Alkaline Phosphatase 62 U/L (35-105); Anion Gap 14.2 (5-19); Aspartate Amino Transferase 41 U/L (0-32); Blood Urea Nitrogen 21 mg/dL (8-23); Calcium 9.6 mg/dL (8.5-10.5); Carbon Dioxide 26 mmol/L (22-29); Chloride 103 mmol/L (98-107); Ferritin 80 ng/mL (15-150); Globulin 2.7 g/dL (1.3-4.6); Glomerular Filtration Rate 83.5 mL/min (90-130); Glucose 97 mg/dL (65-115); Iron 124 ug/dL (37-145); Osmolality Calculated 291 mOsm/kg (285-295); Percent Saturation 52.9 % (20-50); Potassium 4.2 mmol/L (3.5-5.1); Sodium 139 mmol/L (136-145); Total Bilirubin 0.3 mg/dL (0.15-1.2); Total Iron Binding Capacity 234 mcg/dl; Total Protein 7.1 g/dL (6.6-8.7); Unsaturated Iron Binding 110 ug/dL (112-347)
== END 2024-09-14 23:59 | disposition home or self-care (01) ==
LOC: ONCMED 14:07
PROVIDERS: Nurse Practitioner Family; PCP Nurse Practitioner; Visit Provider Internal Medicine Medical Oncology
DX: E83.110 Hereditary hemochromatosis (principal); Z79.899 Other long term (current) drug therapy
CPT/HCPCS: 36415; 80053; 82728; 83540; 83550; 85025

== ENCOUNTER 2024-09-28 07:49 | Oncology outpatient (recurring) (ONCR) | payer MEDICARE, SELFPAY ==
[2024-09-28 08:06] VITALS: BP 136/76; PULSE 68; RESP 16; TEMP 36.2; O2SAT 97
[2024-09-28 08:19] LABS: Basophils % 0.5 %; Eosinophils # 0.1 10^3/uL (0.0-0.8); Hematocrit 41.7 % (36-47); Lymphocytes # 1.5 10^3/uL (0.8-4.8); Lymphocytes % 36.7 %; Mean Corpuscular HGB Conc 33.3 g/dL (30-55); Mean Corpuscular Hemoglobin 31.3 pg (27-33); Mean Corpuscular Volume 93.9 fl (85-98); Mean Platelet Volume 11.1 fL (7.4-10.4); Monocytes # 0.3 10^3/uL (0.2-0.9); Monocytes % 8.5 %; Neutrophils # 2.06 10^3/uL (1.8-7.7); Neutrophils % 51.3 %; Nucleated Red Blood Cells % 0 %; Platelet Count 261 10^3/cmm (157-399); Red Blood Count 4.44 10^6/uL (3.85-5.65); Red Cell Distribution Width 11.9 % (12.1-15.1); White Blood Count 4.01 10^3/uL (3.29-11.43)
[2024-09-28 08:38] LABS: Alanine Aminotransferase 33 U/L (0-33); Albumin Level 4.7 g/dL (3.5-5.2); Alkaline Phosphatase 72 U/L (35-105); Aspartate Amino Transferase 32 U/L (0-32); Blood Urea Nitrogen 21 mg/dL (8-23); Calcium 9.9 mg/dL (8.5-10.5); Carbon Dioxide 28 mmol/L (22-29); Chloride 102 mmol/L (98-107); Ferritin 79 ng/mL (15-150); Globulin 2.6 g/dL (1.3-4.6); Glomerular Filtration Rate 62.5 mL/min (90-130); Glucose 159 mg/dL (65-115); Osmolality Calculated 296 mOsm/kg (285-295); Sodium 140 mmol/L (136-145); Total Bilirubin 0.3 mg/dL (0.15-1.2); Total Protein 7.3 g/dL (6.6-8.7)
== END 2024-10-12 23:59 | disposition home or self-care (01) ==
LOC: ONCMED 07:49
PROVIDERS: Nurse Practitioner Family; PCP Nurse Practitioner; Visit Provider Internal Medicine
DX: E83.110 Hereditary hemochromatosis (principal); Z79.899 Other long term (current) drug therapy
CPT/HCPCS: 36415; 80053; 82728; 85025

== ENCOUNTER 2024-10-10 11:54 | Outpatient (CLI) | payer MEDICARE, SELFPAY ==
--- NOTE | 2024-10-10 12:00 | MM_ITS ---
WS: [id number] BILATERAL 3D TOMOSYNTHESIS DIGITAL SCREENING MAMMOGRAPHY WITH CAD CLINICAL INFORMATION: SCREENING HISTORY: Screening mammogram. No current complaints. COMPARISON: 2023 TECHNIQUE: Bilateral CC and MLO views. FINDINGS: Scattered fibroglandular densities bilaterally. No suspicious focal mass, asymmetry, calcifications, or architectural distortion. No evidence of malignancy. Incidental punctate and lucent centered calcifications. Vascular calcification. MM/MM scr tomosynthesis [id number] IMPRESSION: DENSITY: There are scattered areas of fibroglandular density. BI-RADS: 2 - Benign. FOLLOW UP: 1 Year Follow-up Recommend return to annual screening mammography.
== END 2024-10-10 11:55 | disposition home or self-care (01) ==
LOC: MOBLMAM 11:56
PROVIDERS: PCP Nurse Practitioner; Visit Provider Nurse Practitioner
DX: Z12.31 Encounter for screening mammogram for malignant neoplasm of breast (principal); R92.323 Mammographic fibroglandular density, bilateral breasts; R92.1 Mammographic calcification found on diagnostic imaging of breast
CPT/HCPCS: 77063; 77067

== ENCOUNTER → 2024-10-25 08:55 | Outpatient (BNVA) | payer MEDICARE, SELFPAY | PROVIDERS: PCP Nurse Practitioner; Visit Provider Nurse Practitioner | DX: E11.65 Type 2 diabetes mellitus with hyperglycemia (principal); Z79.4 Long term (current) use of insulin | CPT/HCPCS: 81000 ==

== ENCOUNTER 2024-11-29 12:23 | Oncology outpatient (recurring) (ONCR) | payer MEDICARE, SELFPAY ==
[2024-11-29 13:12] LABS: Basophils % 0.7 %; Eosinophils # 0.1 10^3/uL (0.0-0.8); Hematocrit 37.6 % (36-47); Lymphocytes # 1.5 10^3/uL (0.8-4.8); Mean Corpuscular HGB Conc 33.5 g/dL (30-55); Mean Corpuscular Hemoglobin 31.4 pg (27-33); Mean Corpuscular Volume 93.8 fl (85-98); Mean Platelet Volume 11.1 fL (7.4-10.4); Monocytes # 0.4 10^3/uL (0.2-0.9); Monocytes % 9.1 %; Nucleated Red Blood Cells % 0 %; Platelet Count 252 10^3/cmm (157-399); Red Blood Count 4.01 10^6/uL (3.85-5.65); Red Cell Distribution Width 12.1 % (12.1-15.1); White Blood Count 4.05 10^3/uL (3.29-11.43)
[2024-11-29 13:34] LABS: Alanine Aminotransferase 31 U/L (0-33); Albumin Level 4.3 g/dL (3.5-5.2); Alkaline Phosphatase 61 U/L (35-105); Anion Gap 15.2 (5-19); Aspartate Amino Transferase 33 U/L (0-32); Blood Urea Nitrogen 20 mg/dL (8-23); Calcium 9.4 mg/dL (8.5-10.5); Carbon Dioxide 25 mmol/L (22-29); Chloride 103 mmol/L (98-107); Creatinine Clr Calc Pharmacy 61.8957; Ferritin 63 ng/mL (15-150); Globulin 2.5 g/dL (1.3-4.6); Glomerular Filtration Rate 83.5 mL/min (90-130); Glucose 92 mg/dL (65-115); Iron 84 ug/dL (37-145); Osmolality Calculated 290 mOsm/kg (285-295); Percent Saturation 32.8 % (20-50); Potassium 4.2 mmol/L (3.5-5.1); Sodium 139 mmol/L (136-145); Total Bilirubin 0.2 mg/dL (0.15-1.2); Total Iron Binding Capacity 256 mcg/dl; Total Protein 6.8 g/dL (6.6-8.7); Unsaturated Iron Binding 172 ug/dL (112-347)
== END 2024-12-12 23:59 | disposition home or self-care (01) ==
PROVIDERS: Internal Medicine Medical Oncology; PCP Nurse Practitioner; Visit Provider Internal Medicine
DX: E83.110 Hereditary hemochromatosis (principal); K75.81 Nonalcoholic steatohepatitis (NASH); R03.0 Elevated blood-pressure reading, without diagnosis of hypertension
CPT/HCPCS: 36415; 80053; 82728; 83540; 83550; 85025; 99214

== ENCOUNTER 2024-12-27 07:57 | Oncology outpatient (recurring) (ONCR) | payer MEDICARE, SELFPAY ==
--- NOTE | 2024-12-27 08:15 | USR_ITS ---
PROCEDURE INFORMATION: Exam: US Abdomen; Limited Exam date and time: 12/27/2024 8:05 AM Age: 69 years old Clinical indication: Condition or disease; Other: Hereditary hemochromatosis TECHNIQUE: Imaging protocol: Real time ultrasound of the abdomen with image documentation. Limited exam focused on the region of clinical interest. COMPARISON: US renal BI* [id number] 09/20/2018 4:49 PM FINDINGS: Liver: Liver appears normal in size and echotexture. Gallbladder: No gallstones or ductal dilatation. Inferior vena cava: Inferior vena cava and abdominal aorta appear normal. Portal venous: The portal vein appears normal. Other findings: No hydronephrosis. US/US liver [id number] IMPRESSION: No acute findings.
== END 2025-01-12 23:59 | disposition home or self-care (01) ==
PROVIDERS: PCP Nurse Practitioner; Visit Provider Internal Medicine Medical Oncology
DX: E83.110 Hereditary hemochromatosis (principal)
CPT/HCPCS: 76705

== ENCOUNTER → 2025-01-22 08:08 | Outpatient (BNVA) | payer MEDICARE, SELFPAY | PROVIDERS: PCP Nurse Practitioner; Visit Provider Dermatology | DX: Z01.89 Encounter for other specified special examinations (principal) | CPT/HCPCS: 83721 ==

== ENCOUNTER → 2025-03-06 12:22 | Outpatient (BNVA) | payer MEDICARE, SELFPAY | PROVIDERS: PCP Nurse Practitioner; Visit Provider Nurse Practitioner | DX: E11.65 Type 2 diabetes mellitus with hyperglycemia (principal); Z79.4 Long term (current) use of insulin | CPT/HCPCS: 80053 ==

== ENCOUNTER → 2025-04-23 08:24 | Outpatient (BNVA) | payer MEDICARE, SELFPAY | PROVIDERS: Absent Provider Dermatology; PCP Nurse Practitioner; Visit Provider Dermatology | DX: Z01.89 Encounter for other specified special examinations (principal) | CPT/HCPCS: 83721 ==

== ENCOUNTER → 2025-04-25 09:15 | Outpatient (BNVA) | payer MEDICARE, OTHER, SELFPAY | PROVIDERS: PCP Nurse Practitioner; Visit Provider Nurse Practitioner | DX: E11.65 Type 2 diabetes mellitus with hyperglycemia (principal); Z79.4 Long term (current) use of insulin | CPT/HCPCS: 81000 ==

== ENCOUNTER 2025-05-30 11:20 | Oncology outpatient (recurring) (ONCR) | payer MEDICARE, OTHER, SELFPAY ==
[2025-05-30 11:56] LABS: Hematocrit 40.0 % (36-47); Hemoglobin 13.40 g/dL (11.27-16.99); Mean Corpuscular HGB Conc 33.5 g/dL (30-55); Mean Corpuscular Hemoglobin 32.7 pg (27-33); Mean Corpuscular Volume 97.6 fl (85-98); Nucleated Red Blood Cells % 0 %; Platelet Count 255 10^3/cmm (157-399); Red Blood Count 4.10 10^6/uL (3.85-5.65); White Blood Count 3.82 10^3/uL (3.29-11.43)
[2025-05-30 12:23] LABS: Alanine Aminotransferase 32 U/L (0-33); Albumin Level 4.6 g/dL (3.5-5.2); Alkaline Phosphatase 53 U/L (35-105); Blood Urea Nitrogen 25 mg/dL (8-23); Calcium 9.7 mg/dL (8.5-10.5); Carbon Dioxide 24 mmol/L (22-29); Chloride 101 mmol/L (98-107); Creatinine Clr Calc Pharmacy 52.6048; Ferritin 127 ng/mL (15-150); Globulin 3.0 g/dL (1.3-4.6); Glucose 114 mg/dL (65-115); Osmolality Calculated 291 mOsm/kg (285-295); Sodium 138 mmol/L (136-145); Total Protein 7.6 g/dL (6.6-8.7)
[2025-05-30 12:27] LABS: Anion Gap 17.3 (5-19); Aspartate Amino Transferase 44 U/L (0-32); Potassium 4.3 mmol/L (3.5-5.1)
== END 2025-06-14 23:59 | disposition home or self-care (01) ==
PROVIDERS: Nurse Practitioner; PCP Nurse Practitioner; Visit Provider Internal Medicine Medical Oncology
DX: E83.110 Hereditary hemochromatosis (principal); K75.81 Nonalcoholic steatohepatitis (NASH); R03.0 Elevated blood-pressure reading, without diagnosis of hypertension
CPT/HCPCS: 80053; 82728; 85025; 99195; 99214

== ENCOUNTER → 2025-06-06 12:49 | Outpatient (BNVA) | payer MEDICARE, OTHER, SELFPAY | PROVIDERS: PCP Nurse Practitioner; Visit Provider Nurse Practitioner Family | DX: L81.4 Other melanin hyperpigmentation (principal); L82.1 Other seborrheic keratosis; L57.3 Poikiloderma of Civatte; L57.8 Other skin changes due to chronic exposure to nonionizing radiation; L57.0 Actinic keratosis; X32.XXXA Exposure to sunlight, initial encounter; D48.5 Neoplasm of uncertain behavior of skin | CPT/HCPCS: 11102; 17000; 99203 ==

== ENCOUNTER → 2025-06-25 09:21 | Outpatient (BNVA) | payer MEDICARE, OTHER, SELFPAY | PROVIDERS: PCP Nurse Practitioner; Visit Provider Nurse Practitioner | DX: E11.65 Type 2 diabetes mellitus with hyperglycemia (principal); Z79.4 Long term (current) use of insulin | CPT/HCPCS: 80053; 80061; 81000; 82043; 83036 ==